=== PATIENT | male | born 1990 | race Caucasian/White ===

== ENCOUNTER 2017-07-12 12:35 | Emergency (ER) | payer BC, MEDICAID ==
[~2017-07-12] VITALS: Ht 172.7 cm; Wt 74.8 kg
[2017-07-12 12:47] VITALS: BP_SYST 134
[2017-07-12 13:14] LABS: HEMATOCRIT 46.9 % (36-54); HEMOGLOBIN 15.2 g/dL (14.0-18.0); MEAN CORPUSCULAR HEMOGLOBIN 32 pg (27-31); MEAN CORPUSCULAR HGB CONC 32 % (32-36); MEAN CORPUSCULAR VOLUME 98 fL (79.0-98.0); PLATELET COUNT (AUTO) 280 K/uL (130-430)
[2017-07-12 13:29] LABS: CREATININE 1.66 mg/dL (0.55-1.30); POTASSIUM 3.7 mmol/L (3.5-5.1)
[2017-07-12 13:41] LABS: TOTAL BILIRUBIN 0.7 mg/dL (0.0-1.0)
[2017-07-12] MEDS ORDERED: NACL 0.9% 1,000 ML IV ONE (14:00)
[2017-07-12 14:25] VITALS: BP_SYST 120
[2017-07-12 14:25] LABS: BAND % (MANUAL) 5 % (0-6); BASOPHILS % (MANUAL) 0 % (0-2); EOSINOPHILS % (MANUAL) 1 % (0-7); LYMPHOCYTES % (MANUAL) 21 % (20-46); MONOCYTES % (MANUAL) 10 % (0-11)
== END 2017-07-12 14:25 | disposition home or self-care (01) ==
LOC: SED 12:35
DX: G40.409 Other generalized epilepsy and epileptic syndromes, not intractable, without status epilepticus (principal)
CPT/HCPCS: 36415; 70450; 80053; 85007; 85027; 93005; 96360; 99285; J7030

== ENCOUNTER 2017-10-15 14:33 | Emergency (ER) | payer MEDICAID ==
[~2017-10-15] VITALS: Ht 177.8 cm; Wt 90.7 kg
[2017-10-15 14:38] VITALS: BP_SYST 148
[2017-10-15] MEDS ORDERED: ONDANSETRON HCL 4 MG/2 ML VIAL IVP ONE (14:45)
[2017-10-15] MEDS ORDERED: NACL 0.9% 1,000 ML IV ONE (15:00)
[2017-10-15 15:07] LABS: BASOPHILS % (AUTO) 0.3 % (0.0-2.0); EOSINOPHILS # (AUTO) 0.1 K/uL (0.0-0.4); HEMATOCRIT 45.2 % (36-54); HEMOGLOBIN 15.1 g/dL (14.0-18.0); LYMPHOCYTES # (AUTO) 1.4 K/uL (1.0-5.5); LYMPHOCYTES % (AUTO) 15.6 % (20.5-51.5); MEAN CORPUSCULAR HEMOGLOBIN 32 pg (27-31); MEAN CORPUSCULAR HGB CONC 33 % (32-36); MEAN CORPUSCULAR VOLUME 96 fL (79.0-98.0); MONOCYTES # (AUTO) 0.6 K/uL (0.0-1.0); MONOCYTES % (AUTO) 6.6 % (1.7-9.3); NEUTROPHILS # (AUTO) 7.1 K/uL (1.8-7.7); NEUTROPHILS % (AUTO) 76.5 % (40.0-70.0); PLATELET COUNT (AUTO) 313 K/uL (130-430); RED BLOOD CELL COUNT(AUTO) 4.71 MIL/uL (4.2-6.2); RED CELL DISTRIBUTION WIDTH 11.7 % (9.0-15.0); WHITE BLOOD COUNT (AUTO) 9.2 K/uL (4.8-10.8)
[2017-10-15 16:02] LABS: ANION GAP 18 (5-15); CHLORIDE 103 mmol/L (98-107); CREATININE 1.28 mg/dL (0.55-1.30); GLUCOSE 150 mg/dL (70-99); POTASSIUM 3.7 mmol/L (3.5-5.1); SODIUM SERUM 142 mmol/L (136-145); UREA NITROGEN, BLOOD 18 mg/dL (8-21)
[2017-10-15 16:08] LABS: ALANINE AMINOTRANSFERASE 32 U/L (12-78); ASPARTATE AMINOTRANSFERASE 24 U/L (10-37); TOTAL BILIRUBIN 0.5 mg/dL (0.0-1.0)
[2017-10-15 16:13] LABS: GFR AFRICAN AMERICAN 87 mL/min (>90)
[2017-10-15 16:16] LABS: ACETAMINOPHEN < 1 ug/mL (1-30); ALBUMIN 4.7 g/dL (3.4-4.8)
[2017-10-15 16:17] LABS: ALCOHOL, BLOOD 5 mg/dL (<10); VALPROIC ACID 60 ug/mL (50-100)
[2017-10-15 17:00] LABS: BARBITURATE, URINE NEGATIVE (NEG <=200); BENZODIAZEPINE, URINE NEGATIVE (NEG <=150); CANNABINOID, URINE POSITIVE (NEG <=50); COCAINE, URINE NEGATIVE (NEG <=150); METHAMPHETAMINES SCREEN,URINE NEGATIVE (NEG <=500); OPIATE, URINE NEGATIVE (NEG <=100); PHENCYCLIDINE SCREEN,URINE NEGATIVE (NEG <=25); UR TRICYCLIC ANTIDEPRESSANTS NEGATIVE (NEG <=300); URINE AMPHETAMINE NEGATIVE (NEG <=500); URINE METHADONE NEGATIVE (NEG <=200); URINE OXYCODONE SCREEN NEGATIVE (NEG <=100); URINE PROPOXYPHENE SCREEN NEGATIVE (NEG <=300)
[2017-10-15 17:08] VITALS: BP_SYST 123
== END 2017-10-15 17:08 | disposition home or self-care (01) ==
LOC: SED 14:33
DX: G40.909 Epilepsy, unspecified, not intractable, without status epilepticus (principal); R03.0 Elevated blood-pressure reading, without diagnosis of hypertension
CPT/HCPCS: 36415; 80053; 80164; 80307; 85025; 93005; 96361; 96374; 99285; G0480; G0481; G0482; J2405; J7030